=== PATIENT | female | born 1970 | race Caucasian/White ===

== ENCOUNTER 2022-12-08 08:32 | Day surgery (SDC) | payer OTHER ==
[2022-11-25 11:12] LABS: Absolute Lymphocytes (CBC) 2.1 K/uL (0.7-4.9); Hematocrit 42.6 % (36.0-45.0); Lymphocytes % 26.7 % (15.3-44.8); MCV 92.2 fL (80-100); MPV 9.3 fL (7.6-11.3); RBC Red Blood Cell Count 4.63 M/uL (3.86-4.86)
[2022-11-25 11:20] LABS: Potassium 3.9 mmol/L (3.5-5.1)
[2022-11-25 11:21] LABS: Protime INR 1.03
--- NOTE | 2022-11-25 16:01 | EKG ---
Test Date: 2022-11-25 Test Time: 10:42:31 Hotel Desk Clerk: ZEB MEASUREMENT RESULTS: Intervals: Rate: 70 MD: 154 QRSD: 86 QT: 392 QTc: 423 Maxwell: P: 50 MD: 154 QRS: 54 T: 16 INTERPRETIVE STATEMENTS: Normal sinus rhythm Normal ECG No previous ECG available for comparison Electronically Signed On 11-25-22 16:00:52 [employer] by Oneil Fraser
[2022-12-08 09:04] LABS: Urine Specific Gravity/Preg 1.025 (1.005-1.030)
[2022-12-08] MEDS ORDERED: Ringers Lactate 1,000 ML IV ONE (09:10)
[2022-12-08] MEDS ORDERED: propofoL 200 MG/20 ML VIAL IV ONE (09:34)
[2022-12-08] MEDS ORDERED: LIDOCAINE 1% MPF 5 ML VIAL ONE (09:34)
[2022-12-08] MEDS ORDERED: FENTANYL CITR 100 MCG/2 ML ONE (09:34)
[2022-12-08] MEDS ORDERED: MIDAZOLAM HCL 2 MG/2 ML INJ ONE (09:34)
[2022-12-08] MEDS ORDERED: ONDANSETRON 4 MG/2 ML VIAL ONE ×2 (09:35→10:22)
[2022-12-08] MEDS: CEFAZOLIN SODIUM 1 GM/VIAL ONE ×2 (09:39→10:10)
[2022-12-08] MEDS ORDERED: KETOROLAC 30 MG/ML INJ ONE (10:22)
[2022-12-08] MEDS ORDERED: dexAMETHasone 4 MG/ML VIAL ONE (10:22)
[2022-12-08] MEDS ORDERED: CODEINE 30MG/APAP 300MG TAB PO PRN (10:33)
[2022-12-08] MEDS ORDERED: EPHEDRINE SULF 50 MG/ML VIAL ONE (12:04)
[2022-12-08] MEDS ORDERED: CODEINE 30MG/APAP 300MG TAB ONE (12:35)
[2022-12-08 14:08] VITALS: BP 132/73; TEMP 97.8; O2SAT 99
--- NOTE | 2022-12-09 08:03 | OP ---
Surgeon: BILL GUILLERMO Preoperative Diagnosis: 11 to 12 mm left nephrolithiasis. Postoperative Diagnosis: 11 to 12 mm left nephrolithiasis. Principal Procedure: Left extracorporeal shock wave lithotripsy/ESWL. Indication For Procedure: The patient presented to the [facility]rology Clinic with some left lower quadrant/ inguinal pain of uncertain etiology, which revealed the presence of an incidentally found nonobstruct ing 11 to 12 mm nephrolithiasis. She was counseled extensively on options for management given the l ess than 10% likelihood of successful spontaneous passage, but also recognizing the low, but uncertai n potential that this might be contributing to her pain, and she elected to proceed with shock wave l ithotripsy. Procedure In Detail: The patient was consented in the preoperative holding area before being transfe rred to the operative suite where general anesthesia was induced. She was given Ancef 1 g IV antimic robial prophylaxis and Pneumoboots were provided for DVT prophylaxis. She was placed supine with a w ater bag beneath her flank, and image targeting was performed in the AP and dorsal ventral positionin g. Shock wave lithotripsy was then performed, slowly increasing the power over the course of 500 darshana cks with a 2 minute pause given at 200 shocks. Repeat fluoroscopic imagery was obtained along the co urse of the shock wave lithotripsy, and at about 1000 shocks, because the stone was largely overlying the rib, despite being able to achieve adequate separation in the dorsal ventral positioning and tar geting, we presumed that many of the shock intensity would be absorbed by the rib. As a result, repo sitioning was then accomplished using water bags to elevate her hips at the pelvis and then also rota te her by placing a water bag beneath her right flank. This did elevate the stone slightly above the rib with two thirds of the stone emanating above the rib at end expiration. Approximately one third of the stone remained beneath the rib shadow. We then continued with shock wave lithotripsy targeti ng the stone where it exited above the rib at end expiration. After an additional 1000 shocks had be en delivered, it was noted that significant fragmentation of the two third of the stone above the rib had taken place. We targeted as low as possible right at the junction of the superior border of the rib, and continued shock wave lithotripsy for a total of 3000 shocks. At the end of the shock wave lithotripsy, there was some disillusionment of the stone in that it was less dense and less radiopaqu e. As a result, the patient was then awakened from general anesthesia, transferred to a stretcher, a nd then transferred to the recovery room in good condition. Complications: None. Discharge Disposition: She should follow up in the Urology Clinic in about a month's time with a KUB obtained pre clinic. She should strain her urine for the stone dust in the interim and bring it wit h her to followup for chemical analysis. As a recurrent stone former, she will require metabolic pro file assessment to decrease her risk of future stone forming. LILIANA/MODL Voice ID: [id number] Report ID: [id number]
== END 2022-12-08 13:24 | disposition home or self-care (01) ==
LOC: PRE 08:32 → OR 13:24
PROVIDERS: ATTEND Urology
PROC: 0TF4XZZ Fragmentation in Left Kidney Pelvis, External Approach (ICD-10-PCS; principal; 2022-12-08 09:45)
DX: N20.0 Calculus of kidney (principal); I10 Essential (primary) hypertension; K21.9 Gastro-esophageal reflux disease without esophagitis
CPT/HCPCS: 93005; 87088; 85025; 87086; 80048; 36415; 81025; 85610; 50590 ×2; J2704; J1100; J2001; J2250; J3010; J7120; J2405 ×2; J0690